=== PATIENT | male | born 1970 | race Caucasian/White ===

== ENCOUNTER 2022-05-14 06:16 | Emergency (ER) | payer OTHER, SELFPAY ==
[2022-05-14] MEDS ORDERED: Aspirin Chewable 81 MG TAB ONE (06:52)
[2022-05-14] MEDS ORDERED: Nitroglycerin 0.4 MG TAB 1 EACH ONE (06:52)
[2022-05-14 07:00] LABS: #Basophils 0.1 thou/uL (0.0-0.2); #Eosinphils 0.3 thou/uL (0.0-0.7); #Lymphocytes 1.8 thou/uL (1.20-3.40); #Monocytes 0.6 thou/uL (0.11-0.59); #Neutrophils 4.5 thou/uL (1.40-6.50); %Basophils 1.5 % (0.0-1.0); %Eosinophils 4.6 % (0.0-10.0); %Lymphocytes 24.6 % (21.0-51.0); %Monocytes 8.2 % (0.0-10.0); %Neutrophils 61.1 % (42.0-75.0); Hemoglobin 15.3 g/dL (14.0-18.0); Mean Corpuscular HGB CONC 34.2 g/dL (32.0-36.0); Mean Corpuscular Hemoglobin 34.5 pg (27.0-31.0); Mean Platelet Volume 6.9 fL (7.4-10.4); Platelet Count 242 10x3/uL (130-400); RBC Distribution Width 13.1 % (11.5-14.5); Red Blood Cell (RBC) Count 4.43 mill/uL (4.70-6.10); White Blood Cell (WBC) Count 7.4 10x3/uL (4.8-10.8)
[2022-05-14 07:08] LABS: INR-International Normal Ratio 0.9
[2022-05-14 07:09] LABS: PTT 24.9 sec (22.9-36.1)
[2022-05-14 07:11] LABS: Anion Gap 14 mmol/L (10-20); BUN (Urea Nitrogen) 11 mg/dL (8.4-25.7); Bilirubin, Total 0.6 mg/dL (0.2-1.2); Calc. Creatinine Clearance 0 mL/min (70-130); Calcium 9.4 mg/dL (7.8-10.44); Carbon Dioxide 27 mmol/L (22-29); Chloride 101 mmol/L (98-107); Estimated GFR 98; Glucose 137 mg/dL (70-105); Potassium 3.8 mmol/L (3.5-5.1); Sodium 138 mmol/L (136-145)
[2022-05-14 07:12] LABS: ALT (SGPT) 45 U/L (8-55); AST (SGOT) 29 U/L (5-34); Albumin 4.2 g/dL (3.5-5.0); Alkaline Phosphatase 46 U/L (40-110); Globulin 2.6 g/dL (2.4-3.5); Protein, Total 6.8 g/dL (6.0-8.3)
[2022-05-14 07:19] LABS: MDiff Complete? YES; Macrocytosis SLIGHT = 6-15 cells (100X) (0-5/hpf); Platelet Morphology Comment Appears Adequate
[2022-05-14] MEDS ORDERED: Enoxaparin Sodium 100 MG/ML SYRINGE ONE (07:31)
== END 2022-05-14 10:00 | disposition short-term general hospital (02) ==
LOC: BURERS 06:16
DX: I21.4 Non-ST elevation (NSTEMI) myocardial infarction (principal); I10 Essential (primary) hypertension
CPT/HCPCS: 71045; 80053; 82553; 83880; 84484; 85025; 85610; 85730; 93005; 94760; 96372; J1650